=== PATIENT | female | born 1950 | race Caucasian/White ===

== ENCOUNTER 2017-01-19 14:15 | Observation (INO) ==
[2017-01-19] MEDS ORDERED: ZOFRAN IV PRN (15:57)
[2017-01-19] MEDS ORDERED: TYLENOL PO PRN (15:57)
[2017-01-19 16:42] LABS: RETIC% 1.29 % (0.8-2.1); RETIC-HE 17.4 PG (28.2-36.6)
[2017-01-19 16:43] LABS: INR 0.96; PTT 27.6 Seconds (22.0-36.0)
[2017-01-19 16:44] LABS: BASO% 0.2 % (0.0-0.8); EOS# 0.24 X1000 (0.0-0.7); EOS% 3.9 % (0.0-10.0); HEMATOCRIT 18.9 % (37.0-47.0); IMM GRAN# 0.02 X1000 (0.0-0.04); IMM GRAN% 0.3 % (0.0-0.5); LYMPH# 1.89 X1000 (1.2-3.4); LYMPH% 30.4 % (20.5-51.1); MANUAL DIFF NEEDED? NO; MCH 22.1 PG (27-31); MCV 78.8 FL (81-99); MONO# 0.36 X1000 (0.11-0.59); MONO% 5.8 % (1.7-9.3); MPV 9.5 FL (7.4-10.4); NEUT% 59.4 % (42.2-75.2); PLT 283 X1000 (130-400)
[2017-01-19 16:46] LABS: HEMOGLOBIN 5.3 g/dL (12.0-16.0)
[2017-01-19] MEDS ORDERED: ATIVAN PO PRN (16:50)
[2017-01-19 16:57] LABS: IRON SATURATION 3 %; TIBC 365 ug/dL; TOTAL IRON 11 ug/dL (49-151); UNBOUND IRON 354 ug/dL (112-346)
[2017-01-19 17:02] LABS: AGAP 14; ALBUMIN 3.4 g/dL (3.5-5.0); ALKALINE PHOSPHATASE 83 U/L (32-104); BUN 24 mg/dL (8-22); CALCIUM 8.1 mg/dL (8.8-10.2); CHLORIDE 105 mmol/L (98-107); COSMO 276; GOT 17 U/L (10-30); GPT 13 U/L (10-36); POTASSIUM 4.4 mmol/L (3.5-5.1); SODIUM 135 mmol/L (136-145); TCO2 16 mmol/L (25-35); TOTAL BILIRUBIN < 0.10 mg/dL (0.20-1.00); TOTAL PROTEIN 5.9 g/dL (6.3-8.3)
[2017-01-19] MEDS ORDERED: NS 500 ML ONE (18:48)
[2017-01-20] MEDS: CARAFATE PO SCH ×3 (09:01→17:02)
[2017-01-20] MEDS ORDERED: INFED IV ONE (16:00)
[2017-01-20] MEDS ORDERED: NS IV ONE (16:00)
[2017-01-20 18:42] VITALS: BP 150/75
[2017-01-20] MEDS ORDERED: SYNTHROID PO SCH (21:00)
[2017-01-20] MEDS ORDERED: AVAPRO PO SCH (21:00)
[2017-01-20] MEDS ORDERED: CYMBALTA PO SCH (21:00)
[2017-01-20] MEDS ORDERED: ICAR-C PO SCH (21:00)
[2017-01-21] MEDS ORDERED: PRILOSEC PO SCH (07:00)
[2017-01-21] MEDS ORDERED: SYNTHROID PO SCH (07:00)
== END 2017-01-20 20:52 | disposition home or self-care (01) ==
LOC: DIRADM → 3N 14:15
PROVIDERS: ADMIT Internal Medicine; ATTEND Internal Medicine